=== PATIENT | male | born 1955 | race Caucasian/White ===

== ENCOUNTER 2017-07-10 07:12 | Outpatient (CLI) | payer MEDICARE, OTHER ==
[2016-05-15 02:48] VITALS: BP 131/86
[2017-07-10 07:39] LABS: BASOPHILS % 0.8 (0.0-1.5); EOSINOPHILS % 3.1 % (0.0-6.8); MEAN CORPUSCULAR HEMOGLOBIN 32.3 pg (28.0-34.0); MEAN CORPUSCULAR VOLUME 89.8 fl (80.0-100.0); MONOCYTES % 6.5 % (0.0-11.0); NEUTROPHILS # 3.2 # k/uL (1.4-7.7)
[2017-07-10 08:24] LABS: eGFR (African) > 60; eGFR (Non-African) > 60
== END 2017-07-10 07:13 ==
LOC: LAB 07:12
PROVIDERS: ATTEND Family Medicine
DX: N40.0 Benign prostatic hyperplasia without lower urinary tract symptoms (principal); E78.00 Pure hypercholesterolemia, unspecified; Z51.81 Encounter for therapeutic drug level monitoring
CPT/HCPCS: 36415; 80053; 80061; 84153; 85025